=== PATIENT | female | born 1975 | race Caucasian/White ===

== ENCOUNTER 2021-12-27 21:09 | Inpatient (IN) | payer MEDICAID ==
[~2021-12-27] VITALS: Ht 157.5 cm; Wt 89.8 kg
[2021-12-27 21:37] VITALS: BP 120/70
--- NOTE | 2021-12-27 23:04 | NUR ---
Dr. Rice examining patient.
[2021-12-27] MEDS ORDERED: NACL 0.9% 1,000 ML IV ONE (23:10)
--- NOTE | 2021-12-27 23:10 | NUR ---
PT TAKEN TO BED #7
--- NOTE | 2021-12-27 23:12 | NUR ---
pt bib self for rectal bleeding x 4 days. pt states pain 9/10. pain in lower abd. pt states nausea. pt states bloody stool. denies fever, chest pain, cough. pt states she has no pmh except for skin rashes and takes medicine. pt is ambulatory. a/o x4, hungarian speaking. olimpia
[2021-12-27 23:22] LABS: BILIRUBIN,URINE NEGATIVE (NEGATIVE); BLOOD, URINE 3+ (NEGATIVE); COLOR,URINE YELLOW (YELLOW); LEUKOCYTE ESTERASE ,URINE 1+ (NEGATIVE); NITRITE, URINE NEGATIVE (NEGATIVE); UGLUCOSE NEGATIVE (NEGATIVE)
[2021-12-27 23:22] LABS: BASOPHILS # (AUTO) 0.1 K/uL (0.00-0.22); BASOPHILS % (AUTO) 0.6 % (0.0-2.0); EOSINOPHILS # (AUTO) 0.1 K/uL (0-0.4); EOSINOPHILS % (AUTO) 0.6 % (0.0-4.0); HEMATOCRIT 39.9 % (36-48); HEMOGLOBIN 13.2 g/dL (12.0-16.0); LYMPHOCYTES # (AUTO) 3.1 K/uL (2.5-16.5); LYMPHOCYTES % (AUTO) 26.7 % (20.5-51.1); MEAN CORPUSCULAR HEMOGLOBIN 28 pg (27-31); MEAN CORPUSCULAR HGB CONC 33 g/dL (33-37); MEAN CORPUSCULAR VOLUME 84.8 fL (80-94); MONOCYTES # (AUTO) 0.7 K/uL (0.8-1.0); MONOCYTES % (AUTO) 6.3 % (1.7-9.3); NEUTROPHILS # (AUTO) 7.7 K/uL (1.8-7.7); NEUTROPHILS % (AUTO) 65.8 % (42.2-75.2); PLATELET COUNT (AUTO) 300 K/uL (140-450); WHITE BLOOD COUNT (AUTO) 11.7 K/uL (4.8-10.8)
[2021-12-27 23:36] LABS: APPEARANCE,URINE HAZY (CLEAR)
[2021-12-27 23:40] LABS: RBC,URINE 11-20 (MOD) /HPF (0-5); WBC,URINE 16-25 (MOD) /HPF (0-5)
[2021-12-27 23:47] LABS: ALBUMIN 3.5 g/dL (3.4-5.0); ANION GAP 9.7 (8-16); CARBON DIOXIDE 27.8 mmol/L (21-32); POTASSIUM 3.5 mmol/L (3.5-5.1); TOTAL BILIRUBIN 0.9 mg/dL (0.0-1.0)
[2021-12-27 23:58] LABS: CREATININE 0.8 mg/dL (0.6-1.3)
--- NOTE | 2021-12-28 00:24 | NUR ---
Patient appears to be resting comfortably in bed. Vital Signs within normal limits. Respirations even and unlabored. X2 SIDE RAILS UP
--- NOTE | 2021-12-28 02:00 | NUR ---
PT AMBULATE TO BATHROOM WITH EVEN AND STEADY GATE . ALL NEEDS MET AT THIS TIME
[2021-12-28] MEDS ORDERED: cefTRIAXone 1,000 MG VIAL ONE ×2 (02:19→22:26)
[2021-12-28] MEDS ORDERED: metroNIDAZOLE 500 MG/NS PREMIX 100 ML IV ONE ×2 (03:30→03:34)
--- NOTE | 2021-12-28 04:00 | NUR ---
Patient appears to be resting comfortably in bed sleeping. Vital Signs within normal limits. Respirations even and unlabored.
[2021-12-28] MEDS ORDERED: ACETAMINOPHEN 325 MG TAB PO PRN (04:20)
[2021-12-28] MEDS ORDERED: DOCUSATE SODIUM 100 MG GELCAP PO PRN (04:20)
[2021-12-28] MEDS ORDERED: SODIUM PHOS / POTASSIUM PHOS 1 PKT PDR PO PRN (04:20)
[2021-12-28] MEDS ORDERED: HYDROcodone/APAP 5/325 MG 1 TAB TAB PO PRN (04:20)
[2021-12-28] MEDS ORDERED: ONDANSETRON 4 MG/2 ML VIAL IM/IVP PRN (04:20)
[2021-12-28] MEDS ORDERED: MORPHINE SULFATE 2 MG/ML SYR IVP PRN (04:20)
[2021-12-28] MEDS ORDERED: POTASSIUM CHLORIDE 10 MEQ TABER PO PRN (04:20)
[2021-12-28] MEDS ORDERED: MAGNESIUM OXIDE 400 MG TAB PO PRN (04:20)
[2021-12-28] MEDS ORDERED: metroNIDAZOLE 500 MG/NS PREMIX 100 ML IV SCH (05:00)
--- NOTE | 2021-12-28 07:15 | NUR ---
REPORT RECIEVED FROM LENARD NUNEZ
[2021-12-28] MEDS: NACL 0.9% 1,000 ML IV SCH ×2 (07:27→14:23)
--- NOTE | 2021-12-28 07:28 | NUR ---
Pt report given to DANIEL SCHULTE. Transfer of care at this time.
--- NOTE | 2021-12-28 07:35 | NUR ---
PT MOVED TO ER BED 3
[2021-12-28 07:49] LABS: MAGNESIUM 1.9 mg/dL (1.8-2.4); PHOSPHORUS 3.7 mg/dL (2.5-4.9)
--- NOTE | 2021-12-28 08:07 | NUR ---
49YR OLD MALE C/O N/V X1DAY. PT ADMITTED FOR PARTIAL BOWEL OBSTRUCTION TO MED SURG. ON HOLD UNTIL BED AVAIL. PT IS NPO EXCEPT FOR MEDS. NG ONLY IT PERSISTANT VOMITING. 18G IV CATH PLACED R AC . PT IS A&OX4. HOB ELEVATED. SIDE RAILS UP X2 BED AT LOWEST POSITION
[2021-12-28] MEDS: PANTOPRAZOLE 40 MG TABEC PO SCH (08:57)
--- NOTE | 2021-12-28 11:00 | NUR ---
PT RESTING IN BED. RESP EVEN AND UNLABORED . PT IS UP TO BATHROOM WITHOUT ASSIST. GAIT STEADY. PENDING BED STATUS
[2021-12-28] MEDS: metroNIDAZOLE 500 MG/NS PREMIX 100 ML IV SCH ×3 (11:17→22:36)
--- NOTE | 2021-12-28 11:36 | NUR ---
CLEAR LIQUID DIET ORDERED
--- NOTE | 2021-12-28 15:38 | NUR ---
PT STATES HAVING A CARRASCO 12/08 REQUESTING PAIN MEDS
--- NOTE | 2021-12-28 15:57 | NUR ---
PT RESTING STATES PAIN LEVEL 5/10. NEW IV ACCESS STARTED. 22G L HAND. PT IS A&OX4. HOB ELEVATED. SIDE RAILS UP X1. BED AT LOWEST POSITION.
--- NOTE | 2021-12-28 17:51 | NUR ---
PERSONAL BELONGINGS COMPLETED BY KEITH MÁRQUEZ
--- NOTE | 2021-12-28 22:00 | NUR ---
ambulated to with steady gait. returned to bed and iv reestablished right hand
[2021-12-29] MEDS: NACL 0.9% 1,000 ML IV SCH ×3 (00:38→20:20)
--- NOTE | 2021-12-29 03:00 | NUR ---
awake, ambulates to br.
--- NOTE | 2021-12-29 06:00 | NUR ---
RESTING COMFORTABLY WITH EYES CLOSED. RESPIRATIONS REGULAR AND UNLABORED
[2021-12-29] MEDS: metroNIDAZOLE 500 MG/NS PREMIX 100 ML IV SCH ×3 (06:12→21:28)
[2021-12-29 07:55] LABS: BASOPHILS # (AUTO) 0.1 K/uL (0.00-0.22); BASOPHILS % (AUTO) 0.7 % (0.0-2.0); EOSINOPHILS # (AUTO) 0.1 K/uL (0-0.4); EOSINOPHILS % (AUTO) 1.6 % (0.0-4.0); HEMATOCRIT 35.3 % (36-48); HEMOGLOBIN 11.7 g/dL (12.0-16.0); LYMPHOCYTES # (AUTO) 2.8 K/uL (2.5-16.5); LYMPHOCYTES % (AUTO) 32.1 % (20.5-51.1); MEAN CORPUSCULAR HEMOGLOBIN 28 pg (27-31); MEAN CORPUSCULAR HGB CONC 33 g/dL (33-37); MEAN CORPUSCULAR VOLUME 85.5 fL (80-94); MONOCYTES # (AUTO) 0.5 K/uL (0.8-1.0); MONOCYTES % (AUTO) 5.6 % (1.7-9.3); NEUTROPHILS # (AUTO) 5.1 K/uL (1.8-7.7); PLATELET COUNT (AUTO) 267 K/uL (140-450); RED BLOOD CELL COUNT(AUTO) 4.13 MIL/uL (4.20-5.40); RED CELL DISTRIBUTION WIDTH 15.1 % (11.6-13.7); WHITE BLOOD COUNT (AUTO) 8.6 K/uL (4.8-10.8)
--- NOTE | 2021-12-29 08:40 | NUR ---
Patient will be admitted to care of JO ANN BECKER . Admited to . Will go to [id number]. Belongings list completed. Report to ANDREINA NUNEZ.
--- NOTE | 2021-12-29 08:44 | NUR ---
RECEIVED PT FROM ER NURSE. PT ARRIVED AT THE FLOOR VIA WHEELCHAIR. PT ABLE TO AMBULATE FROM WHEELCHAIR TO HER BED. A&O4, ABLE TO COMMUNICATE NEEDS. RESPIRATIONS EVEN AND UNLABORED ON RA. NO DISTRESS NOTED. V/S STABLE. IV SITE ON RIGHT HAND, 22G INFUSING NS AT 100ML/HR. SKIN IS INTACT WITH NOTED RASHES ON NECK AND CHEST. PT ORIENTED TO ROOM, UNIT AND ROUTINE. MRSA SWAB TAKEN AND SENT TO LAB. CALL LIGHT WITHIN REACH. SAFETY PRECAUTIONS IN PLACE. WILL CONTINUE TO MONITOR.
[2021-12-29 08:45] VITALS: BP 125/70
--- NOTE | 2021-12-29 08:45 | NUR ---
DISCUSSED PLAN OF CARE WITH DARCY SANCHEZ, WILL CONTINUE TO MONITOR
[2021-12-29 08:57] LABS: ANION GAP 12.2 (8-16); CARBON DIOXIDE 26.3 mmol/L (21-32); CREATININE 0.9 mg/dL (0.6-1.3); POTASSIUM 3.5 mmol/L (3.5-5.1)
--- NOTE | 2021-12-29 10:43 | NUR ---
PATIENT HAS BEEN SCREENED AND CATEGORIZED LOW NUTRITION RISK. PATIENT WILL BE SEEN WITHIN 7 DAYS OF ADMISSION. 12/28/21-01/03/[address]
--- NOTE | 2021-12-29 10:50 | NUR ---
ADMINISTERED SCHEDULED MORNING MED. PT TEACHING ABOUT MED GIVEN. PT VERBALIZED UNDERSTANDING.
[2021-12-29] MEDS: PANTOPRAZOLE 40 MG TABEC PO SCH (10:53)
--- NOTE | 2021-12-29 12:54 | NUR ---
OLE ADMINISTERED BY MAYRA LOPEZ. NO ADVERSE REACTION NOTED. WILL CONTINUE TO MONITOR. PT EATING LUNCH. PT TOLERATED WELL. NO COMPLAINT OF ABD PAIN. NO NAUSEA AND VOMITING. WILL CONTINUE TO MONITOR.
[2021-12-29 16:00] VITALS: BP 124/66
--- NOTE | 2021-12-29 16:07 | NUR ---
DID ROUNDS. PT IN BED, USING HER CP. BREATHING EVEN AND UNLABORED. NO COMPLAINTS OF PAIN. PT STATED SHE FELT BLOATED. OFFERED MEDS. PT REFUSED AND STATED SHE CAN STILL TOLERATE. CALL LIGHT WITHIN REACH. SAFETY PRECAUTIONS IN PLACE. WILL CONTINUE TO MONITOR.
--- NOTE | 2021-12-29 19:15 | NUR ---
ENDORSED PT TO ROTATIONAL MOULDING OPERATOR NURSE FOR CONTINUITY OF CARE. ALL NEEDS MET THROUGHOUT SHIFT. PT IS STABLE.
--- NOTE | 2021-12-29 19:16 | NUR ---
RECEIVED REPORT FROM MORNING SHIFT NURSE. PT IS AOX4, SYRIAN SPEAKING, AMBULATORY, ABLE TO VERBALIZE NEEDS AND FOLLOW COMMANDS. PT IS ON ROOM AIR AND ON CLEAR LIQUID DIET. PT HAS IV ON RIGHT HAND G 22 RUNNING WITH NS AT 100ML/HR. ALL SAFETY MEASURES IMPLEMENTED. BED WHEELS ON LOCKED AN BED IN LOW POSITION.
--- NOTE | 2021-12-29 21:28 | NUR ---
SCHEDULED MEDICATION WAS GIVEN TO PT PER MD ORDER. PT TOLERATED IT WELL. ALL SAFETY MEASURES IMPLEMENTED. CALL LIGHT WITHIN REACH, BED WHEELS ON LOCKED AND BED IN LOW POSITION.
--- NOTE | 2021-12-30 | NUR ---
PT IS ON SLEEP. CHEST RISE AND FALL SYMMETRICALLY NOTED. RESPIRATION IS EVEN AND UNLABORED. NO S/S OF RESPIRATORY DISTRESS. ALL SAFETY MEASURES IMPLEMENTED. CALL LIGHT WITHIN REACH, BED WHEELS LOCKED AND BED IN LOW POSITION.
[2021-12-30 04:00] VITALS: BP 123/64
[2021-12-30] MEDS: metroNIDAZOLE 500 MG/NS PREMIX 100 ML IV SCH ×2 (04:14→12:28)
[2021-12-30] MEDS: NACL 0.9% 1,000 ML IV SCH (05:52)
[2021-12-30 05:57] LABS: BASOPHILS # (AUTO) 0.1 K/uL (0.00-0.22); BASOPHILS % (AUTO) 0.8 % (0.0-2.0); EOSINOPHILS # (AUTO) 0.1 K/uL (0-0.4); EOSINOPHILS % (AUTO) 2.2 % (0.0-4.0); HEMATOCRIT 34.6 % (36-48); HEMOGLOBIN 11.4 g/dL (12.0-16.0); LYMPHOCYTES # (AUTO) 2.4 K/uL (2.5-16.5); LYMPHOCYTES % (AUTO) 37.6 % (20.5-51.1); MEAN CORPUSCULAR HEMOGLOBIN 28 pg (27-31); MEAN CORPUSCULAR HGB CONC 33 g/dL (33-37); MEAN CORPUSCULAR VOLUME 84.8 fL (80-94); MONOCYTES # (AUTO) 0.4 K/uL (0.8-1.0); MONOCYTES % (AUTO) 6.9 % (1.7-9.3); NEUTROPHILS # (AUTO) 3.3 K/uL (1.8-7.7); NEUTROPHILS % (AUTO) 52.5 % (42.2-75.2); PLATELET COUNT (AUTO) 257 K/uL (140-450); RED BLOOD CELL COUNT(AUTO) 4.08 MIL/uL (4.20-5.40); RED CELL DISTRIBUTION WIDTH 14.9 % (11.6-13.7); WHITE BLOOD COUNT (AUTO) 6.3 K/uL (4.8-10.8)
[2021-12-30 06:22] LABS: ANION GAP 13.2 (8-16); CREATININE 0.7 mg/dL (0.6-1.3); POTASSIUM 3.2 mmol/L (3.5-5.1)
--- NOTE | 2021-12-30 07:32 | NUR ---
PT IS STABLE. ENDORSED PT TO MORNING SHIFT NURSE, FOR CONTINUITY OF CARE.
[2021-12-30 08:00] VITALS: BP 118/70
[2021-12-30] MEDS: PANTOPRAZOLE 40 MG TABEC PO SCH (09:00)
[2021-12-30] MEDS ORDERED: LEVO-315 PO (11:07)
[2021-12-30] MEDS ORDERED: LACT1.4C PO (11:08)
== END 2021-12-30 16:30 | disposition home or self-care (01) | DRG 249 ==
LOC: MED 21:09 → MTU 12-28 03:57 → MMU 12-29 06:28
PROVIDERS: ADMIT Hospitalist; ATTEND Hospitalist
DX: A09 Infectious gastroenteritis and colitis, unspecified (principal); K76.0 Fatty (change of) liver, not elsewhere classified; N39.0 Urinary tract infection, site not specified; M47.816 Spondylosis without myelopathy or radiculopathy, lumbar region; R31.9 Hematuria, unspecified; L40.9 Psoriasis, unspecified; M19.90 Unspecified osteoarthritis, unspecified site; Z20.822 Contact with and (suspected) exposure to COVID-19; Z90.710 Acquired absence of both cervix and uterus
CPT/HCPCS: 36415; 80048; 80053; 81001; 82150; 83690; 83735; 84100; 85025; 87040; 87081; 87086; 96365; 96367; 99285; J0696; J3490; J7060

== ENCOUNTER 2023-02-08 05:37 | Emergency (ER) | payer MEDICAID ==
[~2023-02-08] VITALS: Ht 157.5 cm; Wt 86.2 kg
[~2023-02-08 05:37] MED LIST: HYDR-636 PO; LACT1.4C PO; LEVO-481 PO
[2023-02-08 05:38] VITALS: BP 137/74; PULSE 90; RESP 22; TEMP 97.4; O2SAT 100
[2023-02-08 06:00] VITALS: BP 140/90; PULSE 87; RESP 18; TEMP 97.4; O2SAT 100
[2023-02-08] MEDS ORDERED: IBUP-2213 PO (09:02)
[2023-02-08] MEDS ORDERED: HYDR-5191 PO (09:02)
== END 2023-02-08 09:10 | disposition home or self-care (01) ==
LOC: MED 05:37
DX: R20.0 Anesthesia of skin (principal); R53.1 Weakness; Z79.899 Other long term (current) drug therapy; Z98.890 Other specified postprocedural states
CPT/HCPCS: 72125; 99284